=== PATIENT | female | born 1945 | race Caucasian/White ===

== ENCOUNTER 2017-11-15 00:05 | Emergency (ER) | payer OTHER, BC ==
[2017-11-15 00:12] VITALS: BMI 28.8
[2017-11-15 02:06] VITALS: TEMP 97.4
[2017-11-15] MEDS ORDERED: ACETAMINOPHEN 500 MG TABLET (FP) PO ONE ×2 (02:23→02:28)
[2017-11-15 02:29] VITALS: BP 152/72; PULSE 62
[2017-11-15] MEDS ORDERED: ACETAMINOPHEN 325 MG TABLET (FP) ONE (02:32)
--- NOTE | 2017-11-15 02:39 | PDOC ---
History of Present Illness - General Chief Complaint: Injury Stated Complaint: FALL Time Seen by Provider: 11/15/17 02:01 History Source: Patient, Family (son) Exam Limitations: Language Barrier - History of Present Illness Initial Comments: 11/15/17 02:30 *pt is British speaking. Son translated Pt is a 72yo f with PMH of DM, HTN, pinched cervical nerve presenting to ED s/p fall. At around 11pm pt tried to get out of the bathtub when she slipped, fell on her coccyx and hit her head on the shower head. She denies LOC. She is complaining of pain and swelling in the posterior aspect of her scalp. She denies new pain in her neck, pain in her back, hip pain, focal neurological deficits. Per son she has been ambulating since the fall. Pt is now complaining of headache in the ED. She denies chest pain, sob, abdominal pain, n/v/d, urinary symptoms. She is not taking blood thinners. No cardiac history, no stroke history. PCP: Luma PMH: dm, htn, pinched cervical nerve PSH: tonsillectomy Allergies: nkda Past History - Past Medical History Allergies/Adverse Reactions: Allergies Allergy/AdvReac Type Severity Reaction Status Date / Time No Known Allergies Allergy Verified 11/15/17 02:06 Home Medications: Ambulatory Orders Diazepam [Valium] 5 mg PO Q8H #12 tablet MDD 15mg 01/19/17 Esomeprazole Magnesium [Nexium 24Hr] 20 mg PO DAILY 01/19/17 Losartan Potassium 50 mg PO DAILY 01/19/17 Naproxen [Naprosyn -] 500 mg PO BID #14 tablet 01/19/17 metFORMIN HCL [Glucophage -] 500 mg PO BID 01/19/17 COPD: No Diabetes: Yes GI Disorders: Yes (gastritis) HTN: Yes Hypercholesterolemia: Yes - Surgical History Cholecystectomy: Yes - Suicide/Smoking/Psychosocial Hx Smoking History: Never smoked Have you smoked in the past 12 months: No Information on smoking cessation initiated: No Hx Alcohol Use: No Drug/Substance Use Hx: No Substance Use Type: None Review of Systems - Review of Systems Able to Perform ROS?: Yes (son helped translate) Constitutional: No: Chills, Fever, Weakness HEENTM: No: Recent change in vision, Mouth Pain Respiratory: No: Cough, Shortness of Breath Cardiac (ROS): No: Chest Pain, Lightheadedness ABD/GI: No: Constipated, Diarrhea, Nausea, Vomiting, Abdominal cramping : No: Dysuria Musculoskeletal: Yes: Back Pain (chronic), Muscle Weakness (chronic rue weakness ), Neck Pain (chronic). No: Joint Pain, Muscle Pain Integumentary: Yes: Lumps (back of scalp) Neurological: Yes: Headache. No: Numbness, Tingling, Weakness, Unsteady Gait, Ataxia, Dizziness *Physical Exam - Vital Signs Last Vital Signs Temp Pulse Resp BP Pulse Ox 97.4 F L 62 18 152/72 98 11/15/17 01:09 11/15/17 02:29 11/15/17 02:29 11/15/17 02:29 11/15/17 01:09 - Physical Exam Comments: 11/15/17 03:47 pt sitting in hallway stretcher comfortably. Family at bedside General Appearance: Yes: Nourished, Appropriately Dressed. No: Apparent Distress HEENT: positive: EOMI, IVY, Hearing Grossly Normal. negative: Pale Conjunctivae, Scleral Icterus (R), Scleral Icterus (L), Pharyngeal Erythema, Sinus Tenderness, Lesions Neck: positive: Trachea midline, Supple. negative: Carotid bruit Respiratory/Chest: positive: Lungs Clear, Normal Breath Sounds. negative: Crackles, Rales, Rhonchi, Stridor, Wheezing Cardiovascular: positive: Regular Rhythm, Regular Rate, S1, S2. negative: Edema , JVD, Murmur Vascular Pulses: Carotid (R): 2+, Carotid (L): 2+, Dorsalis-Pedis (R): 2+, Doralis-Pedis (L): 2+ Gastrointestinal/Abdominal: positive: Normal Bowel Sounds, Soft. negative: Guarding, Rebound, Tenderness Musculoskeletal: positive: Vertebral Tenderness (cervical (chronic)). negative : CVA Tenderness, Muscle Spasm Extremity: positive: Normal Capillary Refill, Normal Range of Motion, Pelvis Stable. negative: Tender Integumentary: positive: Normal Color, Dry, Warm, Other (small area of bruising R posterior scalp. no underlying tenderness). negative: Ecchymosis Neurologic: positive: manager military II-XII NML intact, Fully Oriented, Alert, Normal Mood/ Affect, Normal Response, Responsive. negative: Motor Strength 5/5 (RUE 4/5 ( chronic)), Facial Droop, Numbness, Sensory Deficit, Confused, Disoriented ED Treatment Course - RADIOLOGY Radiology Studies Ordered: Category Date Time Status CERVICAL SPINE CT W/O CONTR [CT] Stat CT Scan 11/15/17 02:[address] WITHOUT CONTRAST [CT] Stat CT Scan 11/15/17 02:23 Ordered PELVIS [RAD] Stat Radiology 11/15/17 02:23 Ordered Medical Decision Making - Medical Decision Making 11/15/17 03:50 72yo f with PMH of dm and htn presenting after mechanical fall in the bathtub and head injury. Vitals: wnl PE: chronic cervical tenderness, chronic rue weakness. no new neurological deficits. small bruise in posterior scalp without exquisite tenderness. Will order CT head to r/o bleed and fracture. CT c spine to r/o fracture and ct hip/pelvis to r/o fracture. No new focal neurological deficits. Low suspicion for stroke or hemorrhagic stroke. CT c-spine negative for fracture CT pelvis negative for fracture Pending CT head. 11/15/17 04:23 CT head negative Pt is hemodynamically stable, neurologically intact with no new deficits, ambulatory, has good follow up. Can be d/c home. Pt agrees with plan. Given strict return precautions. *DC/Admit/Observation/Transfer Diagnosis at time of Disposition: Head injury Qualifiers: Encounter type: initial encounter Qualified Code(s): S09.90XA - Unspecified injury of head, initial encounter - Discharge Dispostion Disposition: HOME Condition at time of disposition: Good Decision to Admit order: No - Referrals Referrals: Lisseth Lance MD [Primary Care Provider] - - Patient Instructions Printed Discharge Instructions: DI for Closed Head Injury Additional Instructions: Te vieron aqu hoy para evaluar chace lesin en la ej despus de caer. Los resultados de la TC fueron normales. No tienes fracturas. Puedes lev Tylenol extra maria luisa para el dolor. Puedes encontrar esto en cualquier marianne. Lev selvin se indica en la botella. Tenga cuidado y observe halle pasos al entrar y salir de la baera. Recomiendo que coloques un tapete antideslizante dentro de la baera para evitar ms cadas. Instalar pasamanos tambin es algo que recomiendo. [place] siempre, recuerde jewel a hdz mdico regularmente. Si el dolor no se maneja con Tylenol, recomiendo jewel a hdz mdico para otras opciones. Regrese a la erasmo de emergencias si: el dolor de ej empeora, desarrolla debilidad, tiene cambios en hdz visin, comienza a vomitar o si aparece algn sntoma nuevo. Mandi You were seen here today for evaluation of head injury after you fell. The CT scan results were normal. You do not have any fractures. You can take extra strength Tylenol for pain. You can find this in any store. Take as directed on the bottle. Please be careful and watch your step when getting in and out of the tub. I recommend getting a nonslip mat to place inside the bathtub to prevent further falls. Installing handrails is also something I recommend. As always, remember to see your doctor regularly. If pain is not managed with Tylenol, I recommend seeing your doctor for other options. Come back to the emergency room if: headache gets worse, you develop weakness, you have changes in your vision, you start vomiting, or if any new concerning symptom develops. Thank you Print Language: PORTUGUESE - Post Discharge Activity
--- NOTE | 2017-11-15 03:34 | PDOC ---
Attending Attestation - Resident Resident Name: Lias Mendoza - ED Attending Attestation I have performed the following: I have examined & evaluated the patient, The case was reviewed & discussed with the resident, I agree w/resident's findings & plan, Exceptions are as noted - HPI HPI: 11/15/17 03:32 72 F with h/o DM, HTN presenting with head pain after falling. Pt was getting out of shower when she slipped, falling backward into tub onto her behind. Pt also struck the back of her head against the shower head. Denies LOC. Pt has been able to ambulate unassisted afterwards. Now has pain in the back of her head where she hit it. Denies N/V. Denies CP/SOB/Palpitations. No lightheadedness preceding fall. Denies weakness/numbness in any extremity. - Physicial Exam PE: 11/15/17 03:33 "GENERAL: Awake, alert, and fully oriented, in no acute distress. HEAD: No signs of trauma EYES: PERRLA, EOMI, sclera anicteric, conjunctiva clear ENT: Auricles normal inspection, hearing grossly normal, nares patent, oropharynx clear without exudates. Moist mucosa NECK: Nontender, no stepoffs, Normal ROM, supple, no lymphadenopathy, JVD, or masses LUNGS: Breath sounds equal, clear to auscultation bilaterally. No wheezes, and no crackles HEART: Regular rate and rhythm, normal S1 and S2, no murmurs, rubs or gallops ABDOMEN: Soft, nontender, normoactive bowel sounds. No guarding, no rebound. No masses EXTREMITIES: Normal range of motion, no edema. No clubbing or cyanosis. No cords, erythema, or tenderness NEUROLOGICAL: Cranial nerves II through XII intact. 5/5 strength and sensation in all extremities, Normal speech, normal gait, normal cerebellar function SKIN: Warm, Dry, normal turgor, no rashes or lesions noted. - Medical Decision Making 11/15/17 03:34 72 F with head pain after mechanical slip and fall. No external signs of trauma. - CT head/c-spine/pelvis 11/15/17 04:22 CTs unremarkable Pt reassessed - feels well. Pt is well appearing, with normal vitals. Clinically stable for DC at this time. I discussed the physical exam findings, ancillary test results and final diagnoses with the patient. I answered all of the patient's questions. The patient was satisfied with the care received and felt comfortable with the discharge plan and treatment plan. The patient agrees to follow up with the primary care physician within 24-72 hours.
== END 2017-11-15 04:40 | disposition home or self-care (01) ==
LOC: JER 00:05
DX: S09.90XA Unspecified injury of head, initial encounter (principal); W18.2XXA Fall in (into) shower or empty bathtub, initial encounter; Y93.89 Activity, other specified; Y92.002 Bathroom of unspecified non-institutional (private) residence as the place of occurrence of the external cause; I10 Essential (primary) hypertension; E11.9 Type 2 diabetes mellitus without complications; E78.00 Pure hypercholesterolemia, unspecified
CPT/HCPCS: 70450-TC; 72125-TC; 72192-TC; 99281-25

== ENCOUNTER → 2021-08-25 | Day surgery (SDC) | payer OTHER, BC | END | disposition home or self-care (01) | LOC: FMAMMOTONE 11:39 | PROVIDERS: ATTEND Family Medicine | PROC: 0HBU3ZX Excision of Left Breast, Percutaneous Approach, Diagnostic (ICD-10-PCS; principal; 2021-08-25) | DX: N60.12 Diffuse cystic mastopathy of left breast (principal); N60.22 Fibroadenosis of left breast; N60.31 Fibrosclerosis of right breast; N60.82 Other benign mammary dysplasias of left breast; N64.89 Other specified disorders of breast; R92.0 Mammographic microcalcification found on diagnostic imaging of breast | CPT/HCPCS: 19081; 76098-TC-FY; 87899; 88305-TC; A4648 ==